=== PATIENT | male | born 1965 | race Caucasian/White ===

== ENCOUNTER 2024-10-08 07:18 | Emergency (ER) | payer SELFPAY ==
[2024-10-08] VITALS (10 sets, daily range): BP systolic 76–140; BP diastolic 51–94
[~2024-10-08] VITALS: Ht 182.9 cm; Wt 91.0 kg
[2024-10-08] MEDS ORDERED: ASPIRIN 81 MG/TAB PO ONE (07:40)
[2024-10-08] MEDS ORDERED: SODIUM CHLORIDE 0.9% 1,000 ML IV ONE (07:53)
[2024-10-08 07:58] LABS: BASO% 0.8 % (0-3); EOS% 3.2 % (0-8); HEMATOCRIT 48.4 % (39.0-50.0); HEMOGLOBIN 15.9 g/dl (14.0-18.0); IMMATURE GRANULOCYTES 0.5 % (0.0-5.0); LYMPH% 31.6 % (15-41); MEAN CELL VOLUME 92.5 fL CALC (80.0-100.0); MEAN CORPUSCULAR HGB 30.4 pG CALC (26.0-32.0); MEAN CORPUSCULAR HGB CONC 32.9 g/dL CAL (32.0-36.0); MONO% 6.9 % (2-13); NEUT# 6.23 thou/uL (1.82-7.42); RED BLOOD COUNT 5.23 mill/uL (4.70-6.10)
[2024-10-08 08:07] LABS: ALBUMIN 4.5 g/dL (3.2-5.0); CREATININE 0.8 mg/dL (0.7-1.3); TOTAL PROTEIN 7.3 g/dL (6.3-8.2)
== END 2024-10-08 11:32 | disposition left against medical advice (07) | DRG 313 ==
LOC: ED 07:18
PROVIDERS: Family Medicine
DX: R07.9 Chest pain, unspecified (principal); R00.1 Bradycardia, unspecified; E78.5 Hyperlipidemia, unspecified; F17.200 Nicotine dependence, unspecified, uncomplicated; Z53.29 Procedure and treatment not carried out because of patient's decision for other reasons